=== PATIENT | female | born 1995 | race Asian ===

== ENCOUNTER 2019-06-05 08:08 | Emergency (ER) | payer SELFPAY ==
[~2019-06-05] VITALS: Ht 170.2 cm; Wt 89.5 kg
[2019-06-05] MEDS ORDERED: NAPR220T57 PO (08:15)
[2019-06-05] MEDS ORDERED: PHEN-748 PO (08:15)
[2019-06-05] MEDS ORDERED: ACETAMINOPHEN 500 MG TABLET PO ONE (09:00)
[2019-06-05 09:36] VITALS: BP 126/79
[2019-06-05] MEDS ORDERED: PENICILLIN V POTASSIUM 500 MG TABLET PO ONE (09:45)
== END 2019-06-05 09:53 | disposition home or self-care (01) ==
LOC: EMS 08:11
DX: J02.0 Streptococcal pharyngitis (principal); M79.10 Myalgia, unspecified site
CPT/HCPCS: 87430